=== PATIENT | female | born 1995 | race Caucasian/White ===

== ENCOUNTER 2016-10-08 16:18 | Emergency (ER) | payer MEDICAID, OTHER ==
[~2016-10-08] VITALS: Ht 175.3 cm; Wt 58.1 kg
[2016-10-08 17:18] VITALS: BP 113/77; PULSE 91; RESP 16; TEMP 98.8; O2SAT 98
[2016-10-08] MEDS ORDERED: SODIUM CHLOR 0.9% 1000 ML INJ 1,000 ML IV SCH (17:37)
--- NOTE | 2016-10-08 17:43 | PD ---
HPI . Persistent vomiting Chief Complaint: GI Complaint Time Seen by Provider: 17:36 Travel History International Travel<30 days: No Contact w/Intl Traveler<30days: No Traveled to known affect area: No History of Present Illness HPI Patient presents with intermittent vomiting since March. She states that it does not happen every day but happens every week. Takes that on days that it does happen happens all day. She denies any fever. She denies any diarrhea. She reports some mild upper abdominal pain. Denies any urinary symptoms. She admits to weight loss. [id number]: Upper abdomen DURATION: 7 months TIMING: At least once a week ASSOCIATED SYMPTOMS: No diarrhea, no fever, no UTI symptoms PFSH Past Medical History ?: Not LMP: 09/23/16 Social History Tobacco Use: No Allergies-Medications (Allergen,Severity, Reaction): Coded Allergies: No Known Allergies (Unverified , 10/08/16) Reported Meds & Prescriptions Reported Meds & Active Scripts Active Reported [ control pills] PO DAILY Review of Systems Except as stated in HPI: all other systems reviewed are Neg General / Constitutional: No: Fever, Chills Eyes: Positive: Blurred Vision HENT: Positive: Headaches, Lightheadedness Cardiovascular: No: Chest Pain or Discomfort Respiratory: No: Shortness of Breath Gastrointestinal: Positive: Nausea, Vomiting, Abdominal Pain, No: Diarrhea Genitourinary: No: Urgency, Frequency, Dysuria, Decreased Urinary Output Neurologic: Positive: Weakness Psychiatric: Positive: Anxiety, Depression Physical Exam Narrative GENERAL: Healthy-appearing young woman in no acute distress. SKIN: Warm and dry. HEAD: Atraumatic. Normocephalic. EYES: Pupils equal and round. Sclera are anicteric. ENT: No nasal bleeding or discharge. Mucous membranes pink and moist. NECK: Trachea midline. Neck is supple. CARDIOVASCULAR: Regular rate and rhythm. Heart sounds are normal. She is not tachycardic. RESPIRATORY: No accessory muscle use. Lungs are clear with good air movement throughout. GASTROINTESTINAL: Abdomen soft, non-tender, nondistended. MUSCULOSKELETAL: No obvious deformities. No edema. NEUROLOGICAL: Awake and alert. No obvious cranial nerve deficits. Motor grossly within normal limits. Normal speech. PSYCHIATRIC: Appropriate mood and affect; insight and judgment normal. Data Data Last Documented VS Vital Signs Date Time Temp Pulse Resp B/P Pulse Ox O2 Delivery O2 Flow Rate FiO2 3/10/17 17:18 98.8 91 16 113/77 98 Orders Complete Blood Count With Diff (10/08/16 17:37) Comprehensive Metabolic Panel (10/08/16 17:37) Lipase (10/08/16 17:37) Urinalysis - C+S If Indicated (10/08/16 17:37) Ct Abd/Pel W Iv Contrast(Rout) (10/08/16 17:37) Iv Access Insert/Monitor (10/08/16 17:37) Ecg Monitoring (10/08/16 17:37) Oximetry (10/08/16 17:37) Ondansetron Inj (Zofran Inj) (10/08/16 17:45) Sodium Chlor 0.9% 1000 Ml Inj (Ns 1000 M (10/08/16 17:37) Sodium Chloride 0.9% Flush (Ns Flush) (10/08/16 17:45) Ed Urine Pregnancytest Poc (10/08/16 17:37) Sodium Chlor 0.9% 1000 Ml Inj (Ns 1000 M (10/08/16 18:15) Ondansetron Inj (Zofran Inj) (10/08/16 18:15) Urine Culture (10/08/16 17:50) Ceftriaxone Inj (Rocephin Inj) (10/08/16 18:45) Labs Laboratory Tests Test 10/08/16 10/08/16 17:50 18:05 Urine Color YELLOW Urine Turbidity CL Urine pH 6.0 Urine Specific [place] 1.028 Urine Protein TRACE mg/dL Urine Glucose (UA) NEG mg/dL Urine Ketones NEG mg/dL Urine Occult Blood MOD Urine Nitrite NEG Urine Bilirubin NEG Urine Leukocyte Esterase SMALL Urine RBC 10-14 /hpf Urine WBC 15-19 /hpf Urine Squamous Epithelial > 8 /hpf Cells Urine Bacteria MANY /hpf Microscopic Urinalysis Comment CULTURE INDICATED White Blood Count 13.5 TH/MM3 Red Blood Count 4.38 MIL/MM3 Hemoglobin 13.0 GM/DL Hematocrit 38.8 % Mean Corpuscular Volume 88.6 FL Mean Corpuscular Hemoglobin 29.7 PG Mean Corpuscular Hemoglobin 33.5 % Concent Red Cell Distribution Width 13.4 % Platelet Count 259 TH/MM3 Mean Platelet Volume 7.6 FL Neutrophils (%) (Auto) 75.5 % Lymphocytes (%) (Auto) 16.5 % Monocytes (%) (Auto) 6.9 % Eosinophils (%) (Auto) 0.8 % Basophils (%) (Auto) 0.3 % Neutrophils # (Auto) 10.3 TH/MM3 Lymphocytes # (Auto) 2.2 TH/MM3 Monocytes # (Auto) 0.9 TH/MM3 Eosinophils # (Auto) 0.1 TH/MM3 Basophils # (Auto) 0.0 TH/MM3 CBC Comment DIFF FINAL Differential Comment Sodium Level 141 MEQ/L Potassium Level 3.5 MEQ/L Chloride Level 107 MEQ/L Carbon Dioxide Level 24.1 MEQ/L Anion Gap 10 MEQ/L Blood Urea Nitrogen 7 MG/DL Creatinine 0.69 MG/DL Estimat Glomerular Filtration 108 ML/MIN Rate Random Glucose 91 MG/DL Calcium Level 8.8 MG/DL Total Bilirubin 0.4 MG/DL Aspartate Amino Transf 9 U/L (AST/SGOT) Alanine Aminotransferase 18 U/L (ALT/SGPT) Alkaline Phosphatase 55 U/L Total Protein 7.6 GM/DL Albumin 3.9 GM/DL Lipase 111 U/L [facility] Medical Decision Making Medical Screen Exam Complete: Yes Emergency Medical Condition: Yes Differential Diagnosis Differential diagnosis includes but is not limited to viral gastritis, food poisoning, pancreatitis, pneumonia, hepatitis, acute coronary syndrome, Narrative Course Patient presents with a 7 month history of intermittent vomiting. She does not appear dehydrated clinically. CBC & BMP Diagram 10/08/16 18:05 LFTs are normal. Creatinine is 0.69. UA is compatible with UTI. Many bacteria, 18-19 white blood cells and small leukocyte esterase. Culture is in progress. Rocephin has been ordered. Care is being turned over to Dr. Hill pending her CT. Diagnosis Primary Impression: Vomiting Qualified Code: G43.A0 - Non-intractable cyclical vomiting with nausea Additional Impression: UTI (urinary tract infection) Qualified Code: N30.00 - Acute cystitis without hematuria Rand Sutton MD Oct 08, 2016 17:43
[2016-10-08] MEDS ORDERED: ONDANSETRON HCL 4 MG/2 ML VIAL IVP ONE (17:45)
[2016-10-08] MEDS ORDERED: SODIUM CHLORIDE 0.9% FLUSH 5 ML FLUSH IVF PRN (17:45)
[2016-10-08] MEDS ORDERED: birth control pills PO (17:51)
[2016-10-08] MEDS ORDERED: ONDANSETRON HCL 4 MG/2 ML VIAL IV PUSH ONE (18:15)
[2016-10-08] MEDS ORDERED: SODIUM CHLOR 0.9% 1000 ML INJ 1,000 ML IV ONE (18:15)
[2016-10-08 18:17] LABS: GLUCOSE,URINE NEG (NEG); KETONE, URINE NEG (NEG); NITRITE,URINE NEG (NEG)
[2016-10-08 18:19] LABS: AUTOMATED NEUTROPHIL # 10.3 TH/MM3 (1.8-7.7); BASOPHIL % 0.3 % (0.0-2.0); EOSINOPHIL # 0.1 TH/MM3 (0-0.4); EOSINOPHIL % 0.8 % (0.0-4.0); HEMATOCRIT 38.8 % (35.0-46.0); HEMO FLAGS DIFF FINAL; LYMPH % 16.5 % (9.0-44.0); LYMPHOCYTE # 2.2 TH/MM3 (1.0-4.8); MEAN CELL VOLUME 88.6 FL (80.0-100.0); MEAN CORPUSCULAR HEMOGLOBIN 29.7 PG (27.0-34.0); MEAN CORPUSCULAR HGB CONC 33.5 % (32.0-36.0); MONO % 6.9 % (0.0-8.0); NEUT % 75.5 % (16.0-70.0); PLATELET COUNT 259 TH/MM3 (150-450); RED BLOOD COUNT 4.38 MIL/MM3 (4.00-5.30); RED CELL DISTRIBUTION WIDTH 13.4 % (11.6-17.2); WHITE BLOOD COUNT 13.5 TH/MM3 (4.0-11.0)
[2016-10-08 18:20] LABS: BLOOD, URINE MOD (NEG)
[2016-10-08 18:27] LABS: SQUAMOUS EPITHELIAL CELL URINE > 8 /hpf (0-5); URINE COLOR YELLOW (YELLW/STRAW); WBC, URINE 15-19 /hpf (0-5)
[2016-10-08 18:28] LABS: BACTERIA, URINE MANY /hpf; COMMENT (UR) CULTURE INDICATED; CULTURE IF INDICATED CULTURE INDICATED
[2016-10-08 18:32] LABS: CHLORIDE 107 MEQ/L (98-107); POTASSIUM 3.5 MEQ/L (3.5-5.1); SODIUM (NA) 141 MEQ/L (136-145)
[2016-10-08 18:36] LABS: ANION GAP 10 MEQ/L (5-15); BICARBONATE 24.1 MEQ/L (21.0-32.0); BLOOD UREA NITROGEN 7 MG/DL (7-18)
[2016-10-08 18:38] LABS: ALT (GPT) 18 U/L (9-42); AST (GOT) 9 U/L (16-38)
[2016-10-08 18:39] LABS: GLOMERULAR FILTRATION RATE 108 ML/MIN (>89)
[2016-10-08 18:40] LABS: TOTAL BILIRUBIN ADULT 0.4 MG/DL (0.2-1.0)
[2016-10-08 18:41] LABS: ALKALINE PHOSPHATASE 55 U/L (45-117)
[2016-10-08] MEDS ORDERED: cefTRIAXone INJ 1,000 MG in SODIUM CHLORIDE 0.9% INJ 100 ML IV ONE (18:45)
[2016-10-08] MEDS ORDERED: IOHEXOL 350 MG/ML 10 ML VIAL (for RAD DIAG) IV ONE (18:59)
--- NOTE | 2016-10-08 19:09 | RADHPO ---
EXAM DATE/TIME: 10/08/2016 18:18 [place] COMPARISON: No previous studies available for comparison. INDICATIONS : Intermittent vomiting for eight months. IV CONTRAST: 80 cc Omnipaque 350 (iohexol) IV ORAL CONTRAST: No oral contrast ingested. RADIATION DOSE: 5.17 CTDIvol (mGy) MEDICAL HISTORY : None SURGICAL HISTORY : None. ENCOUNTER: Initial ACUITY: 7 - 11 months PAIN SCALE: 3/10 LOCATION: Abdomen. TECHNIQUE: Volumetric scanning of the abdomen and pelvis was performed. Using automated exposure control and ad justment of the mA and/or kV according to patient size, radiation dose was kept as low as reasonably achievable to obtain optimal diagnostic quality images. FINDINGS: LOWER LUNGS: The visualized lower lungs are clear. LIVER: Homogeneous density without lesion. There is no dilation of the biliary tree. No calcified gallston es. SPLEEN: Normal size without lesion. PANCREAS: Within normal limits. KIDNEYS: Normal in size and shape. There is no mass, stone or hydronephrosis. ADRENAL GLANDS: Within normal limits. VASCULAR: There is no aortic aneurysm. BOWEL/MESENTERY: The stomach, small bowel, and colon demonstrate no acute abnormality. There is no free intraperitone al air or fluid. The appendix is well-visualized, normal. ABDOMINAL WALL: Within normal limits. RETROPERITONEUM: There is no lymphadenopathy. BLADDER: No wall thickening or mass. REPRODUCTIVE: 18 mm cystic structure seen along the right side of the lower vagina. There is a 3 cm cyst of the lef t ovary. INGUINAL: There is no lymphadenopathy or hernia. MUSCULOSKELETAL: Within normal limits for patient age. CONCLUSION: 1. 3 cm cyst of the left ovary. 2. 1.8 cm cyst of the lower vagina, most likely benign. 3. Otherwise negative study. Normal appendix. Michael Thomas MD on October 08, 2016 at 19:05 Board Certified Radiologist. This report was verified electronically.
[2016-10-08] MEDS ORDERED: MACR100C2 PO (19:23)
[2016-10-08] MEDS ORDERED: PROM1SUP9 RECTAL (19:23)
--- NOTE | 2016-10-08 19:23 | PD ---
Data Data Last Documented VS Vital Signs Date Time Temp Pulse Resp B/P Pulse Ox O2 Delivery O2 Flow Rate FiO2 10/08/16 17:18 98.8 91 16 113/77 98 Orders Complete Blood Count With Diff (10/08/16 17:37) Comprehensive Metabolic Panel (10/08/16 17:37) Lipase (10/08/16 17:37) Urinalysis - C+S If Indicated (10/08/16 17:37) Ct Abd/Pel W Iv Contrast(Rout) (10/08/16 17:37) Iv Access Insert/Monitor (10/08/16 17:37) Ecg Monitoring (10/08/16 17:37) Oximetry (10/08/16 17:37) Ondansetron Inj (Zofran Inj) (10/08/16 17:45) Sodium Chlor 0.9% 1000 Ml Inj (Ns 1000 M (10/08/16 17:37) Sodium Chloride 0.9% Flush (Ns Flush) (10/08/16 17:45) Ed Urine Pregnancytest Poc (10/08/16 17:37) Sodium Chlor 0.9% 1000 Ml Inj (Ns 1000 M (10/08/16 18:15) Ondansetron Inj (Zofran Inj) (10/08/16 18:15) Urine Culture (10/08/16 17:50) Ceftriaxone Inj (Rocephin Inj) (10/08/16 18:45) Iohexol 350 Inj (Omnipaque 350 Inj) (10/08/16 18:59) Labs Laboratory Tests Test 10/08/16 10/08/16 17:50 18:05 Urine Color YELLOW Urine Turbidity CL Urine pH 6.0 Urine Specific [place] 1.028 Urine Protein TRACE mg/dL Urine Glucose (UA) NEG mg/dL Urine Ketones NEG mg/dL Urine Occult Blood MOD Urine Nitrite NEG Urine Bilirubin NEG Urine Leukocyte Esterase SMALL Urine RBC 10-14 /hpf Urine WBC 15-19 /hpf Urine Squamous Epithelial > 8 /hpf Cells Urine Bacteria MANY /hpf Microscopic Urinalysis Comment CULTURE INDICATED White Blood Count 13.5 TH/MM3 Red Blood Count 4.38 MIL/MM3 Hemoglobin 13.0 GM/DL Hematocrit 38.8 % Mean Corpuscular Volume 88.6 FL Mean Corpuscular Hemoglobin 29.7 PG Mean Corpuscular Hemoglobin 33.5 % Concent Red Cell Distribution Width 13.4 % Platelet Count 259 TH/MM3 Mean Platelet Volume 7.6 FL Neutrophils (%) (Auto) 75.5 % Lymphocytes (%) (Auto) 16.5 % Monocytes (%) (Auto) 6.9 % Eosinophils (%) (Auto) 0.8 % Basophils (%) (Auto) 0.3 % Neutrophils # (Auto) 10.3 TH/MM3 Lymphocytes # (Auto) 2.2 TH/MM3 Monocytes # (Auto) 0.9 TH/MM3 Eosinophils # (Auto) 0.1 TH/MM3 Basophils # (Auto) 0.0 TH/MM3 CBC Comment DIFF FINAL Differential Comment Sodium Level 141 MEQ/L Potassium Level 3.5 MEQ/L Chloride Level 107 MEQ/L Carbon Dioxide Level 24.1 MEQ/L Anion Gap 10 MEQ/L Blood Urea Nitrogen 7 MG/DL Creatinine 0.69 MG/DL Estimat Glomerular Filtration 108 ML/MIN Rate Random Glucose 91 MG/DL Calcium Level 8.8 MG/DL Total Bilirubin 0.4 MG/DL Aspartate Amino Transf 9 U/L (AST/SGOT) Alanine Aminotransferase 18 U/L (ALT/SGPT) Alkaline Phosphatase 55 U/L Total Protein 7.6 GM/DL Albumin 3.9 GM/DL Lipase 111 U/L [facility] Supervised Visit with ABBEY: No Narrative Course 21 yo woman with abominal pain x months. Pain off and on. He is to be more monthly, now more weekly. Was seen at the health department and given referral for primary. Some nausea and vomiting episodes as well. Benign exam. Patient signed out to me to follow-up on the results of CT imaging. Labs show: CBC with minimal leukocytosis. CMP unremarkable Lipase is normal UA with some reds and some whites, possibly contaminated, culture pending. CT abdomen and pelvis: 3 cm cyst on the left ovary. 1.8 cm cyst of the lower vagina, most likely benign. Otherwise negative. Normal appendix. FINAL: We'll treat for UTI. Medication as needed for vomiting. Outpatient follow-up with GI if symptoms persist. Diagnosis Primary Impression: Vomiting Qualified Code: G43.A0 - Non-intractable cyclical vomiting with nausea Additional Impression: UTI (urinary tract infection) Qualified Code: N30.00 - Acute cystitis without hematuria Additional Instruction: Follow-up with your primary physician in the next 2-3 weeks. Take Phenergan suppositories as needed for nausea or vomiting. Take Macrobid as prescribed. Return to the emergency department for any new or worsening symptoms. Med/Other Pt SpecificInfo: Prescription(s) given Scripts Nitrofurantoin Monohydrate Macrocrystals (Macrobid)100 Mg [id number] Mg PO BID 5 Days Prov:Zohaib Hill MD 10/08/16 Promethazine Supp 25 Mg Supp25 Mg RECTAL Q6H PRN (NAUSEA OR VOMITING) #15 SUPP Prov:Zohaib Hill MD 10/08/16 Disposition: 01 DISCHARGE HOME Condition: Stable Zohaib Hill MD Oct 08, 2016 19:23
--- NOTE | 2016-10-08 19:31 | PD ---
Data Data Last Documented VS Vital Signs Date Time Temp Pulse Resp B/P Pulse Ox O2 Delivery O2 Flow Rate FiO2 10/08/16 17:18 98.8 91 16 113/77 98 Orders Complete Blood Count With Diff (10/08/16 17:37) Comprehensive Metabolic Panel (10/08/16 17:37) Lipase (10/08/16 17:37) Urinalysis - C+S If Indicated (10/08/16 17:37) Ct Abd/Pel W Iv Contrast(Rout) (10/08/16 17:37) Iv Access Insert/Monitor (10/08/16 17:37) Ecg Monitoring (10/08/16 17:37) Oximetry (10/08/16 17:37) Ondansetron Inj (Zofran Inj) (10/08/16 17:45) Sodium Chlor 0.9% 1000 Ml Inj (Ns 1000 M (10/08/16 17:37) Sodium Chloride 0.9% Flush (Ns Flush) (10/08/16 17:45) Ed Urine Pregnancytest Poc (10/08/16 17:37) Sodium Chlor 0.9% 1000 Ml Inj (Ns 1000 M (10/08/16 18:15) Ondansetron Inj (Zofran Inj) (10/08/16 18:15) Urine Culture (10/08/16 17:50) Ceftriaxone Inj (Rocephin Inj) (10/08/16 18:45) Iohexol 350 Inj (Omnipaque 350 Inj) (10/08/16 18:59) Labs Laboratory Tests Test 10/08/16 10/08/16 17:50 18:05 Urine Color YELLOW Urine Turbidity CL Urine pH 6.0 Urine Specific [place] 1.028 Urine Protein TRACE mg/dL Urine Glucose (UA) NEG mg/dL Urine Ketones NEG mg/dL Urine Occult Blood MOD Urine Nitrite NEG Urine Bilirubin NEG Urine Leukocyte Esterase SMALL Urine RBC 10-14 /hpf Urine WBC 15-19 /hpf Urine Squamous Epithelial > 8 /hpf Cells Urine Bacteria MANY /hpf Microscopic Urinalysis Comment CULTURE INDICATED White Blood Count 13.5 TH/MM3 Red Blood Count 4.38 MIL/MM3 Hemoglobin 13.0 GM/DL Hematocrit 38.8 % Mean Corpuscular Volume 88.6 FL Mean Corpuscular Hemoglobin 29.7 PG Mean Corpuscular Hemoglobin 33.5 % Concent Red Cell Distribution Width 13.4 % Platelet Count 259 TH/MM3 Mean Platelet Volume 7.6 FL Neutrophils (%) (Auto) 75.5 % Lymphocytes (%) (Auto) 16.5 % Monocytes (%) (Auto) 6.9 % Eosinophils (%) (Auto) 0.8 % Basophils (%) (Auto) 0.3 % Neutrophils # (Auto) 10.3 TH/MM3 Lymphocytes # (Auto) 2.2 TH/MM3 Monocytes # (Auto) 0.9 TH/MM3 Eosinophils # (Auto) 0.1 TH/MM3 Basophils # (Auto) 0.0 TH/MM3 CBC Comment DIFF FINAL Differential Comment Sodium Level 141 MEQ/L Potassium Level 3.5 MEQ/L Chloride Level 107 MEQ/L Carbon Dioxide Level 24.1 MEQ/L Anion Gap 10 MEQ/L Blood Urea Nitrogen 7 MG/DL Creatinine 0.69 MG/DL Estimat Glomerular Filtration 108 ML/MIN Rate Random Glucose 91 MG/DL Calcium Level 8.8 MG/DL Total Bilirubin 0.4 MG/DL Aspartate Amino Transf 9 U/L (AST/SGOT) Alanine Aminotransferase 18 U/L (ALT/SGPT) Alkaline Phosphatase 55 U/L Total Protein 7.6 GM/DL Albumin 3.9 GM/DL Lipase 111 U/L [facility] [place] Supervised Visit with ABBEY: No Diagnosis Primary Impression: Vomiting Qualified Code: G43.A0 - Non-intractable cyclical vomiting with nausea Additional Impression: UTI (urinary tract infection) Qualified Code: N30.00 - Acute cystitis without hematuria Referrals: Herminia Ching MD call for appointment Patient Instructions: General Instructions Departure Forms: Tests/Procedures, Work Release Enter return to work date: Oct 10, 2016 Additional Instruction: Follow-up with your primary physician in the next 2-3 weeks. Take Phenergan suppositories as needed for nausea or vomiting. Take Macrobid as prescribed. Return to the emergency department for any new or worsening symptoms. Med/Other Pt SpecificInfo: Prescription(s) given Scripts Nitrofurantoin Monohydrate Macrocrystals (Macrobid)100 Mg [id number] Mg PO BID 5 Days Prov:Zohaib Hill MD 10/08/16 Promethazine Supp 25 Mg Supp25 Mg RECTAL Q6H PRN (NAUSEA OR VOMITING) #15 SUPP Prov:Zohaib Hill MD 10/08/16 Disposition: 01 DISCHARGE HOME Condition: Stable Zohaib Hill MD Oct 08, 2016 19:31
[2016-10-08 20:10] VITALS: BP 117/74
[2016-10-09] MEDS ORDERED: ZOFR4TAB3 SL (16:48)
== END 2016-10-08 20:17 | disposition home or self-care (01) ==
LOC: PHED 16:18
DX: R11.2 Nausea with vomiting, unspecified (principal); N39.0 Urinary tract infection, site not specified; R10.10 Upper abdominal pain, unspecified; H53.8 Other visual disturbances
CPT/HCPCS: 74177; 80053; 81001; 83690; 84703; 85025; 87086; 96365; 99284; J0696; J7030; Q9967

== ENCOUNTER 2016-10-09 13:15 | Emergency (ER) | payer MEDICAID, OTHER ==
[~2016-10-09] VITALS: Ht 175.3 cm; Wt 60.0 kg
[~2016-10-09 13:15] MED LIST: MACR100C2 PO; PROM1SUP9 RECTAL; birth control pills PO
[2016-10-09 13:31] VITALS: BP 132/76; PULSE 82; RESP 18; TEMP 97.7; O2SAT 100
[2016-10-09] MEDS ORDERED: SODIUM CHLOR 0.9% 1000 ML INJ 1,000 ML IV SCH (14:17)
[2016-10-09] MEDS ORDERED: SODIUM CHLOR 0.9% 1000 ML INJ 1,000 ML IV ONE (14:30)
[2016-10-09] MEDS ORDERED: ONDANSETRON HCL 4 MG/2 ML VIAL IVP ONE (14:30)
[2016-10-09] MEDS ORDERED: DICYCLOMINE HCL 10 MG CAP PO ONE (14:30)
[2016-10-09] MEDS ORDERED: PANTOPRAZOLE SODIUM 40 MG VIAL IVP ONE (14:30)
[2016-10-09] MEDS ORDERED: SODIUM CHLORIDE 0.9% FLUSH 5 ML FLUSH IVF PRN (14:30)
--- NOTE | 2016-10-09 14:34 | PD ---
HPI Chief Complaint: GI Complaint Time Seen by Provider: 14:12 Travel History International Travel<30 days: No Contact w/Intl Traveler<30days: No Traveled to known affect area: No History of Present Illness HPI Patient is a 21-year-old female who presents to emergency room with her mother for evaluation of intractable nausea or vomiting. Patient reports that she was seen in the emergency room yesterday for similar symptoms, reports that at that time, she had laboratory drawn and a CAT scan of her abdomen and pelvis with IV contrast performed. Patient reports that they did not find anything, reports the CAT scan showed an ovarian cyst and cyst on her lower vagina which was benign. Patient reports that she felt fine after she was discharged from the hospital yesterday, reports that she began to feel nauseous this morning and began to vomit. Reports that she is unable to keep down any foods or fluids all morning. Reports that she was prescribed Phenergan, she did try taking this with no relief of symptoms. Patient reports that she has been having problems with intractable nausea and vomiting since March, patient reports that beginning in March, she had symptoms to monitor this every month, reports that she has progressed to having symptoms every week and now symptoms seem like they occur daily. Patient has not follow-up with tail puller yet, reports that she was just seen yesterday in the emergency room and has not had time for getting a referral. Patient with no abdominal pain at this time, reports nausea vomiting, denies fevers and chills. Patient with no recent travels or trips PFSH Past Medical History Medical History: Denies Significant Hx Diminished Hearing: No ?: Not LMP: 09/23/16 Social History Alcohol Use: Yes (malt drinks, occasionally) Tobacco Use: No Substance Use: No Allergies-Medications (Allergen,Severity, Reaction): Coded Allergies: No Known Allergies (Unverified , 10/09/16) Reported Meds & Prescriptions Reported Meds & Active Scripts Active Zofran Odt (Ondansetron Odt) 4 Mg Tab 4 Mg SL Q6HR PRN Macrobid (Nitrofurantoin Monoh/Nitrofur Macro) 100 Mg Cap 100 Mg PO BID 5 Days Promethazine Supp (Promethazine HCl) 25 Mg Supp 25 Mg RECTAL Q6H PRN Reported [ control pills] PO DAILY Review of Systems General / Constitutional: No: Fever Eyes: No: Visual changes HENT: No: Headaches Cardiovascular: No: Chest Pain or Discomfort Respiratory: No: Shortness of Breath Gastrointestinal: Positive: Nausea, Vomiting, No: Abdominal Pain Genitourinary: No: Dysuria Musculoskeletal: No: Pain Skin: No Rash Neurologic: No: Weakness Psychiatric: No: Depression Endocrine: No: Polydipsia Hematologic/Lymphatic: No: Easy Bruising Physical Exam Narrative GENERAL: nad, nontoxic SKIN: Warm and dry. HEAD: Atraumatic. Normocephalic. EYES: Pupils equal and round. No scleral icterus. No injection or drainage. ENT: No nasal bleeding or discharge. Mucous membranes pink and moist. NECK: Trachea midline. No JVD. CARDIOVASCULAR: Regular rate and rhythm. No murmur appreciated. RESPIRATORY: No accessory muscle use. Clear to auscultation. Breath sounds equal bilaterally. GASTROINTESTINAL: Abdomen soft, non-tender, nondistended. Hepatic and splenic margins not palpable. MUSCULOSKELETAL: No obvious deformities. No clubbing. No cyanosis. No edema. NEUROLOGICAL: Awake and alert. No obvious cranial nerve deficits. Motor grossly within normal limits. Normal speech. PSYCHIATRIC: Appropriate mood and affect; insight and judgment normal. Data Data Last Documented VS Vital Signs Date Time Temp Pulse Resp B/P Pulse Ox O2 Delivery O2 Flow Rate FiO2 10/09/16 15:39 94 18 104/60 98 10/09/16 13:31 97.7 Orders Complete Blood Count With Diff (10/09/16 14:17) Comprehensive Metabolic Panel (10/09/16 14:17) Lipase (10/09/16 14:17) Prothrombin Time / Inr (Pt) (10/09/16 14:17) Act Partial Throm Time (Ptt) (10/09/16 14:17) Urinalysis - C+S If Indicated (10/09/16 14:17) Iv Access Insert/Monitor (10/09/16 14:17) Ecg Monitoring (10/09/16 14:17) Ondansetron Inj (Zofran Inj) (10/09/16 14:30) Pantoprazole Inj (Protonix Inj) (10/09/16 14:30) Sodium Chlor 0.9% 1000 Ml Inj (Ns 1000 M (10/09/16 14:17) Sodium Chloride 0.9% Flush (Ns Flush) (10/09/16 14:30) Dicyclomine (Bentyl) (10/09/16 14:30) Ed Urine Pregnancytest Poc (10/09/16 14:17) Sodium Chlor 0.9% 1000 Ml Inj (Ns 1000 M (10/09/16 14:30) Chlorpromazine Inj (Thorazine Inj) (10/09/16 14:45) Labs Laboratory Tests Test 10/09/16 14:20 White Blood Count 9.5 TH/MM3 Red Blood Count 4.45 MIL/MM3 Hemoglobin 13.3 GM/DL Hematocrit 39.4 % Mean Corpuscular Volume 88.6 FL Mean Corpuscular Hemoglobin 29.9 PG Mean Corpuscular Hemoglobin 33.8 % Concent Red Cell Distribution Width 12.7 % Platelet Count 275 TH/MM3 Mean Platelet Volume 7.8 FL Neutrophils (%) (Auto) 85.5 % Lymphocytes (%) (Auto) 9.9 % Monocytes (%) (Auto) 3.9 % Eosinophils (%) (Auto) 0.2 % Basophils (%) (Auto) 0.5 % Neutrophils # (Auto) 8.2 TH/MM3 Lymphocytes # (Auto) 0.9 TH/MM3 Monocytes # (Auto) 0.4 TH/MM3 Eosinophils # (Auto) 0.0 TH/MM3 Basophils # (Auto) 0.0 TH/MM3 CBC Comment DIFF FINAL Differential Comment Prothrombin Time 10.5 SEC Prothromb Time International 1.0 RATIO Ratio Activated Partial 23.7 SEC Thromboplast Time Sodium Level 141 MEQ/L Potassium Level 3.7 MEQ/L Chloride Level 109 MEQ/L Carbon Dioxide Level 16.8 MEQ/L Anion Gap 15 MEQ/L Blood Urea Nitrogen 7 MG/DL Creatinine 0.82 MG/DL Estimat Glomerular Filtration 89 ML/MIN Rate Random Glucose 166 MG/DL Calcium Level 9.2 MG/DL Total Bilirubin 0.5 MG/DL Aspartate Amino Transf 9 U/L (AST/SGOT) Alanine Aminotransferase 18 U/L (ALT/SGPT) Alkaline Phosphatase 54 U/L Total Protein 7.8 GM/DL Albumin 3.7 GM/DL Lipase 99 U/L MDM Medical Decision Making Medical Screen Exam Complete: Yes Emergency Medical Condition: Yes Interpretation(s) Vital Signs Date Time Temp Pulse Resp B/P Pulse Ox O2 Delivery O2 Flow Rate FiO2 10/09/16 13:31 97.7 82 18 132/76 100 Differential Diagnosis Gastroparesis, intractable nausea and vomiting, electrolyte abnormality Narrative Course Patient is a 21-year-old female who presents to emergency room with her mother for evaluation of intractable nausea and vomiting. Patient was seen emerging yesterday and had a CAT scan of her abdomen pelvis and was diagnosed ultimately with a urinary tract infection. Patient reports that she has been feeling nauseous and isn't vomiting since March, reports that she had been symptomatic once a month, reports that she has been having increased nausea and vomiting more frequently. Patient reports no abdominal pain at this time, reports that she feels nauseous and can't keep any foods or fluids. Patient did try taking Phenergan this morning with no relief of symptoms. Labs as well as CAT scan results reviewed from yesterday. Patient with no abdominal pain this time. Plan to give patient a fluids as well as antiemetics. CBC & BMP Diagram 10/09/16 14:20 Patient reevaluated, patient reports that she is feeling much better at this time. Reviewed all labs and all studies with patient, abdomen is soft, nontender, nondistended, no peritoneal signs. Patient understands need to follow-up with GI as outpatient, signs and symptoms of when to return to the emergency room was reviewed with patient in detail. patient was able to tolerate PO trial prior to being discharged from ER Diagnosis Primary Impression: Nausea & vomiting Qualified Code: R11.2 - Nausea and vomiting, intractability of vomiting not specified, unspecified vomiting type Referrals: Sondra Vu MD Patient Instructions: General Instructions Additional Instructions: Please eat a bland diet Follow-up with your tail puller as soon as possible Please stop a primary care doctor Return to the emergency room if symptoms progress or worsen or return Med/Other Pt SpecificInfo: Prescription(s) given Scripts Ondansetron Odt (Zofran Odt)4 Mg Tab4 Mg SL Q6HR PRN (Nausea/Vomiting) #30 TAB Ref 0 Prov:Alicia Palma DO 10/09/16 Disposition: 01 DISCHARGE HOME Condition: Stable Alicia Palma DO Oct 09, 2016 14:34
[2016-10-09 14:37] VITALS: BP 91/68; PULSE 86; RESP 22; O2SAT 95
[2016-10-09 14:42] LABS: AUTOMATED NEUTROPHIL # 8.2 TH/MM3 (1.8-7.7); BASOPHIL % 0.5 % (0.0-2.0); EOSINOPHIL % 0.2 % (0.0-4.0); HEMATOCRIT 39.4 % (35.0-46.0); LYMPH % 9.9 % (9.0-44.0); LYMPHOCYTE # 0.9 TH/MM3 (1.0-4.8); MEAN CELL VOLUME 88.6 FL (80.0-100.0); MEAN CORPUSCULAR HEMOGLOBIN 29.9 PG (27.0-34.0); MEAN CORPUSCULAR HGB CONC 33.8 % (32.0-36.0); MONO % 3.9 % (0.0-8.0); NEUT % 85.5 % (16.0-70.0); PLATELET COUNT 275 TH/MM3 (150-450); RED BLOOD COUNT 4.45 MIL/MM3 (4.00-5.30); RED CELL DISTRIBUTION WIDTH 12.7 % (11.6-17.2); WHITE BLOOD COUNT 9.5 TH/MM3 (4.0-11.0)
[2016-10-09 14:45] LABS: CHLORIDE 109 MEQ/L (98-107); POTASSIUM 3.7 MEQ/L (3.5-5.1); SODIUM (NA) 141 MEQ/L (136-145)
[2016-10-09] MEDS ORDERED: chlorproMAZINE INJ 25 MG in SODIUM CHLORID 0.9% 500 ML INJ 500 ML IV ONE (14:45)
[2016-10-09 14:48] LABS: HEMO FLAGS DIFF FINAL
[2016-10-09 14:49] LABS: ANION GAP 15 MEQ/L (5-15); APTT (PATIENT) 23.7 SEC (24.3-30.1); BICARBONATE 16.8 MEQ/L (21.0-32.0); BLOOD UREA NITROGEN 7 MG/DL (7-18); PROTHROMBIN TIME - PATIENT 10.5 SEC (9.8-11.6)
[2016-10-09 14:52] LABS: ALT (GPT) 18 U/L (9-42); AST (GOT) 9 U/L (16-38); GLOMERULAR FILTRATION RATE 89 ML/MIN (>89)
[2016-10-09 14:53] LABS: TOTAL BILIRUBIN ADULT 0.5 MG/DL (0.2-1.0)
[2016-10-09 14:55] LABS: ALKALINE PHOSPHATASE 54 U/L (45-117)
[2016-10-09 15:39] VITALS: BP 104/60; PULSE 94; RESP 18; O2SAT 98
[2016-10-09] MEDS ORDERED: ZOFR4TAB3 SL (16:48)
== END 2016-10-09 17:08 | disposition home or self-care (01) ==
LOC: PHED 13:15
DX: R11.2 Nausea with vomiting, unspecified (principal)
CPT/HCPCS: 80053; 83690; 85025; 85610; 85730; 96365; 96366; 96375; 99283; C9113; J2405; J3230; J7030; J7040